=== PATIENT | female | born 1985 | race Caucasian/White ===

== ENCOUNTER 2024-08-24 00:58 | Emergency (ER) | payer OTHER ==
[2024-08-24 01:02] VITALS: TEMP 98.2
[2024-08-24] MEDS: pantoprazole 40 MG vial IV SCH (01:09)
[2024-08-24] MEDS: mag hydrox/Alum hydrox/simeth 30ml oral suspension PO ONE (01:10)
[2024-08-24] MEDS: HYDROmorphone 1 mg/ml syringe IV ONE (01:10)
[2024-08-24] MEDS: LIDOcaine 2% Viscous 15ml cup MM PRN (01:21)
[2024-08-24 01:24] LABS: BASOPHILS # (AUTO) 0.1 X10'3 (0-0.2); BASOPHILS % (AUTO) 0.7 % (0-1); EOSINOPHILS # (AUTO) 0.3 X10'3 (0-0.9); HEMATOCRIT 30.3 % (35.0-45.0); HEMOGLOBIN 10.3 g/dl (12.0-16.0); LYMPHOCYTES # (AUTO) 4.3 X10'3 (1.1-4.8); LYMPHOCYTES % (AUTO) 43.7 % (21-51); MEAN CORPUSCULAR HEMOGLOBIN 28.7 PG (27.0-31.0); MEAN CORPUSCULAR HGB CONC 33.9 g/dL (33.0-36.5); MEAN CORPUSCULAR VOLUME 84.5 FL (78-98); MEAN PLATELET VOLUME 8.2 FL (7.4-10.4); MONOCYTES # (AUTO) 0.6 X10'3 (0-0.9); MONOCYTES % (AUTO) 5.8 % (2-12); NEUTROPHILS # (AUTO) 4.6 X10'3 (1.8-7.7); NEUTROPHILS % (AUTO) 46.8 % (42-75); PLATELET COUNT 271 X10'3 (140-440); RED BLOOD COUNT 3.59 X10'6 (4.20-5.60); RED CELL DISTRIBUTION WIDTH 13.8 % (11.5-14.5); WHITE BLOOD COUNT 9.8 X10'3 (4.5-11.0)
[2024-08-24 01:34] LABS: ALANINE AMINOTRANSFERASE 31 U/L (12-78); ALBUMIN 3.4 G/DL (3.4-5.0); ALBUMIN/GLOBULIN RATIO 1.1 (1.1-1.5); ALKALINE PHOSPHATASE 52 IU/L (46-116); ANION GAP 8 (8-16); ASPARTATE AMINO TRANSFERASE 31 U/L (10-37); BILIRUBIN,TOTAL 0.2 MG/DL (0.1-1.0); BLOOD UREA NITROGEN 15 MG/DL (7-18); BUN/CREATININE RATIO 20.3 (10.0-20.0); CALCIUM 8.2 MG/DL (8.5-10.1); CHLORIDE 107 MMOL/L (99-107); CREATININE 0.74 MG/DL (0.40-0.90); GLUCOSE 88 MG/DL (70-104); SODIUM 140 MMOL/L (135-145); TOTAL PROTEIN 6.4 G/DL (6.4-8.2); eGFR 87 ML/MIN
[2024-08-24 01:37] LABS: LIPASE 45 U/L (16-77)
[2024-08-24] MEDS: ondansetron/PF 4mg/2ml inj IV ONE (01:47)
--- NOTE | 2024-08-24 02:42 | Physician Documentation ---
History of Present Illness Chief Complaint: Abdominal Pain Stated Complaint: SEE CHIEF Time Seen by MD: 01:03 Mode of Arrival: Ambulatory HPI 39 year old female with epigastric burning pain radiating to L chest. Severe, +nausea, no vomiting or diarrhea. Occurred suddenly while at work tonight. Has history of similar episodes, worked up in past in another ER without any definitive diagnosis. Has been bothering her for 4-5 months. She has a follow up appointment with an upper endoscopy scheduled in about 3 weeks. Medication Reconciliation Allergies: Coded Allergies: Penicillins (Verified Allergy, Unknown, 08/24/24) Review of Systems All Other Systems at this time: Reviewed and Negative Physical Exam Vital Signs: RN Vital Signs have been reviewed: Yes, Temperature: 98.2, Heart Rate: 72, Respiratory Rate: 16, BP: 106/65, Pulse Oximetry: 99 Oxygen Flow Rate: 0 Physical Exam HEENT: PERRL, moist oral mucosa, EOMI Pulmonary: No respiratory distress Cardiac: RRR, no murmur, rub or gallop GI: nondistended, soft, nontender, no guarding, no rebound MSK: no deformity Skin: w/d/i, no rash Neuro: alert, nonfocal Psych: normal affect Progress Results/Orders Results/Orders Orders - KAYLAN CONDE MD Pantoprazole 40mg Iv (Protonix 40mg Iv) (08/24/24 01:05) Lidocaine 2% Viscous (Xylocaine 2% Visco (08/24/24 01:05) Urinalysis, Cult If Indicated (08/24/24 01:03) Hcg, Ur Ql (08/24/24 01:03) Chest,Single View (08/24/24 01:05) Completed Orders - KAYLAN CONDE MD Hydromorphone 1 Mg/Ml/Pf (Dilaudid Inj.) (08/24/24 01:05) Mag & Alum Hydrox/Simeth Susp (Maalox Or (08/24/24 01:05) Cbc/Diff (08/24/24 01:03) CMP (08/24/24 01:03) Lipase (08/24/24 01:03) Chest,Single View (08/24/24 01:05) Troponin (Single) (08/24/24 01:05) Ondansetron Inj. (Zofran 4mg/2ml Vial) (08/24/24 01:20) Medications Received in ER Medications (Trade) Dose Ordered Sig/Gianni Route PRN Reason Start Time Stop Time Status Last Admin Dose Admin (Protonix 40mg IV) 80 mg ONCE IV 08/24/24 01:05 08/24/24 01:09 80 MG (Dilaudid inj.) 1 mg ONCE ONCE IV 08/24/24 01:05 08/24/24 01:06 DC 08/24/24 01:10 1 MG (Xylocaine 2% Viscous 15mL cup) 30 ml ONCE PRN MM sore throat 08/24/24 01:05 08/24/24 01:21 30 ML (Maalox oral suspension) 30 ml ONCE ONCE PO 08/24/24 01:05 08/24/24 01:06 DC 08/24/24 01:10 30 ML (Zofran 4mg/2ml vial) 4 mg ONCE ONCE IV 08/24/24 01:20 08/24/24 01:39 DC 08/24/24 01:47 4 MG Vital Signs 08/24/24 08/24/24 08/24/24 08/24/24 01:02 01:10 01:20 02:07 Temp 98.2 Pulse 72 72 Resp 20 20 20 16 B/P (MAP) 112/68 106/65 (79) Pulse Ox 100 99 O2 Flow Rate 0 0 Laboratory Tests Test 08/24/24 01:12 White Blood Count 9.8 Red Blood Count 3.59 L Hemoglobin 10.3 L Hematocrit 30.3 L Mean Corpuscular Volume 84.5 Mean Corpuscular Hemoglobin 28.7 Mean Corpuscular Hemoglobin Concent 33.9 Red Cell Distribution Width 13.8 Platelet Count 271 Mean Platelet Volume 8.2 Neutrophils (%) (Auto) 46.8 Lymphocytes (%) (Auto) 43.7 Monocytes (%) (Auto) 5.8 Eosinophils (%) (Auto) 3.0 Basophils (%) (Auto) 0.7 Neutrophils # (Auto) 4.6 Lymphocytes # (Auto) 4.3 Monocytes # (Auto) 0.6 Eosinophils # (Auto) 0.3 Basophils # (Auto) 0.1 CBC Comment Sodium Level 140 Potassium Level 3.0 *L Chloride Level 107 Carbon Dioxide Level 25.0 Anion Gap 8 Blood Urea Nitrogen 15 Creatinine 0.74 Estimated GFR/1.73 m2 87 BUN/Creatinine Ratio 20.3 H Glucose Level 88 Calcium Level 8.2 L Total Bilirubin 0.2 Aspartate Amino Transf (AST/SGOT) 31 Alanine Aminotransferase (ALT/SGPT) 31 Alkaline Phosphatase 52 Troponin I High Sensitivity 7 Total Protein 6.4 Albumin 3.4 Globulin 3.0 Albumin/Globulin Ratio 1.1 Lipase 45 Chemistry Comments Medical Decision Making Findings 39 year old female with epigastric abdominal pain. Meds provided, workup unremarkable. Bedside US demonstrated no significant findings other than gallstones but no PCCF nor gallbladder wall thickening. Improved on reevaluation. Discharged with return precautions. Differential Dx:Considerations: Include: Appendicitis, Constipation, Esophageal rupture, Esophagitis, Hernia, Ischemic bowel, Ovarian cyst/torsion, Pancreatitis, Urinary obstruction, Urinary tract infection Departure Disposition: HOME / SELF CARE / HOMELESS Impression: Primary Impression: Dyspepsia Condition: Stable Discharge Instructions: Abdominal Pain (Nonspecific) Referrals: NO PRIMARY CARE PROVIDER (PCP) Education Educated: Patient Educated regarding: diagnosis, treatment, prognosis, need for follow up Signature Scribe Signature: . Attestation: . KAYLAN CONDE MD August 24, 2024 02:42
--- NOTE | 2024-08-24 02:54 | RADIOLOGY REPORT ---
Clinical History abdominal pain Comparison None Without Contrast KAILYN FONTANA, [id number] Chest x-ray Clinical history: 39 year-old Abdominal pain Findings: Lung alvarado: No infiltrate or effusion Heart: Normal Musculoskeletal: Normal Impression: Normal chest This report was electronically signed by Caden Bhatti MD on 08/24/2024 2:51:08 AM.
[2024-08-24 03:05] VITALS: BP 106/54; PULSE 62; RESP 16; O2SAT 98
[2024-08-24] MEDS ORDERED: ketamine 10mg/ml 20ml inj vial IV ONE (03:05)
== END 2024-08-24 03:08 | disposition home or self-care (01) ==
LOC: ER 00:59
DX: R10.13 Epigastric pain (principal); Z88.0 Allergy status to penicillin
CPT/HCPCS: 36415; 71045; 80053; 83690; 84484; 85025; 96374; 96375; 99284; J1171; J2405; J2470

== ENCOUNTER 2024-10-19 00:15 | Inpatient (IN) | payer OTHER ==
[2024-10-19] VITALS (8 sets, daily range): BP systolic 89–120; BP diastolic 42–71; PULSE 46–67; RESP 16–18; TEMP 95.7–99.1; O2SAT 97–100
[~2024-10-19] VITALS: Ht 162.6 cm; Wt 86.4 kg
[2024-10-19] MEDS: normal saline 1000ML IV soln IVB ONE (00:30)
[2024-10-19] MEDS: ondansetron/PF 4mg/2ml inj IV STA (00:36)
[2024-10-19] MEDS ORDERED: iohexol 300mg/ml 100ml inj. ONE ×2 (00:39→09:52)
[2024-10-19 00:55] LABS: MEAN PLATELET VOLUME 8.3 FL (7.4-10.4); RED CELL DISTRIBUTION WIDTH 14.1 % (11.5-14.5)
[2024-10-19 01:13] LABS: CREATININE 0.77 MG/DL (0.40-0.90); TOTAL CARBON DIOXIDE 23.4 MMOL/L (24-32); eCRCL 85 ML/MIN; eGFR 83 ML/MIN
--- NOTE | 2024-10-19 01:30 | Physician Documentation ---
History of Present Illness Chief Complaint: Abdominal Pain Stated Complaint: ABD PAIN Time Seen by MD: 00:16 Mode of Arrival: POV, Ambulatory HPI 39-year-old female, history of gallstones, presenting with upper abdominal pain She tells me that she has had intermittent pain over the past several months or longer. The pain is generally in the upper abdomen, worse in the right upper abdomen, and does radiate through to the back. She has had an extensive workup in the past including an ultrasound that showed gallstones, and an upper and lower endoscopy that was unremarkable. She did have elevated liver enzymes 1 time, but recently they have been normal. She is scheduled to see a surgeon in about a month. Today she comes in because of significantly worsening pain. She had an episode this morning, that was severe but then resolved. She was actually at work this evening, when the pain returned. She has been taking opiate pain medications at home without any relief. She reports associated nausea. No fevers, no vomiting, no diarrhea. Medication Reconciliation Allergies: Coded Allergies: Penicillins (Verified Allergy, Unknown, 10/19/24) Review of Systems Constitutional: Denies: fever Gastrointestinal: Reports: abdominal pain, nausea; Denies: vomiting Physical Exam Vital Signs: Temperature: 98.2, Source: Oral, Heart Rate: 20, Respiratory Rate: 20, BP: 134/80, Pulse Oximetry: 99, Weight: 86.360 Physical Exam General: This is a pleasant young woman, partner at bedside HEENT: Atraumatic, oropharynx appears dry Heart: Mild tachycardic, appears regular Lungs: normal work of breathing, normal oxygen saturation on room air Abdomen: Soft, nondistended, focal tenderness to palpation in the epigastric region and right upper quadrant, otherwise nontender, no rebound or guarding Neuro: Alert and oriented Psychiatric: Calm and cooperative with exam Progress Results/Orders Results/Orders Orders - MADY DUKES MD Urinalysis, Cult If Indicated (10/19/24 00:21) Straight Cath For Urine Sample (10/19/24 00:21) * Miscellaneous Nursing Orders (10/19/24 ) Ultrasound Of Abdomen (10/19/24 01:13) Completed Orders - MADY DUKES MD Cbc/Diff (10/19/24 00:21) BMP (10/19/24 00:21) Lipase (10/19/24 00:21) CMP (10/19/24 00:21) Normal Saline 1000ml (0.9% Sodium Chlori (10/19/24 00:25) Hydromorphone 1 Mg/Ml/Pf (Dilaudid Inj.) (10/19/24 00:22) Ondansetron Inj. (Zofran 4mg/2ml Vial) (10/19/24 00:30) Iohexol 300mg/Ml 100ml Inj. (Omnipaque-3 (10/19/24 00:39) Medications Received in ER Medications (Trade) Dose Ordered Sig/Gianni Route PRN Reason Start Time Stop Time Status Last Admin Dose Admin (0.9% sodium chloride (NS) 1000ml IV soln) 1,000 ml ONCE ONCE IVB 10/19/24 00:25 10/19/24 00:26 DC 10/19/24 00:30 1,000 ML (Dilaudid inj.) 1 mg ONCE STAT IV 10/19/24 00:22 10/19/24 00:24 DC 10/19/24 00:27 1 MG (Zofran 4mg/2ml vial) 4 mg ONCE STAT IV 10/19/24 00:30 10/19/24 00:32 DC 10/19/24 00:36 4 MG Vital Signs 10/19/24 10/19/24 10/19/24 00:17 00:23 00:27 Temp 98.2 Pulse 20 Resp 18 20 20 B/P (MAP) 134/80 Pulse Ox 99 Laboratory Tests Test 10/19/24 00:48 White Blood Count 11.0 Red Blood Count 4.18 L Hemoglobin 11.7 L Hematocrit 35.3 Mean Corpuscular Volume 84.4 Mean Corpuscular Hemoglobin 28.0 Mean Corpuscular Hemoglobin Concent 33.1 Red Cell Distribution Width 14.1 Platelet Count 305 Mean Platelet Volume 8.3 Neutrophils (%) (Auto) 74.3 Lymphocytes (%) (Auto) 18.9 L Monocytes (%) (Auto) 4.2 Eosinophils (%) (Auto) 2.0 Basophils (%) (Auto) 0.6 Neutrophils # (Auto) 8.2 H Lymphocytes # (Auto) 2.1 Monocytes # (Auto) 0.5 Eosinophils # (Auto) 0.2 Basophils # (Auto) 0.1 CBC Comment Sodium Level 137 Potassium Level 3.8 Chloride Level 105 Carbon Dioxide Level 23.4 L Anion Gap 9 Blood Urea Nitrogen 12 Creatinine 0.77 Estimated GFR/1.73 m2 83 BUN/Creatinine Ratio 15.6 Glucose Level 123 H Calcium Level 8.1 L Total Bilirubin 2.3 H Aspartate Amino Transf (AST/SGOT) 283 H Alanine Aminotransferase (ALT/SGPT) 340 H Alkaline Phosphatase 100 Total Protein 6.5 Albumin 3.4 Globulin 3.1 Albumin/Globulin Ratio 1.1 Lipase 28 Chemistry Comments EKG/XRAY/CT/US/VASC/MRI Ultrasound : Ultrasound of: abdomen Impression I reviewed the ultrasound, which shows gallstones, but no gallbladder wall thickening or pericholecystic fluid Consults/PCP Consults/PCP : Additional Comment Consult: I spoke to the internal medicine service, for admission in the hospital Medical Decision Making Additional Comments Differential includes gallstones, cholecystitis, pancreatitis, common bile duct stone, gastritis, colitis, dehydration, electrolyte derangement Assessment The patient presents with worsening episodes of right upper quadrant pain. Per her history and exam this seems likely consistent with gallbladder disease. She is mildly tender, but her pain had significantly improved by time of my evaluation. Her workup shows gallstones without evidence of cholecystitis. She does have slightly elevated LFTs which is also consistent with gallbladder disease. She recently had upper endoscopy that did not show gastritis or peptic ulcer disease. Given her severe symptoms, and the fact that she is having worsening symptoms and missing work, it seems reasonable for admission for further treatment and surgical consult for possible cholecystectomy or other intervention. She will be admitted to the medicine service overnight. Departure Impression: Primary Impression: Cholelithiasis without obstruction Additional Impressions: Elevated LFTs Right upper quadrant abdominal pain Referrals: NO PRIMARY CARE PROVIDER (PCP) Signature Scribe Signature: na Attestation: MADY Hill MD Oct 19, 2024 01:30
--- NOTE | 2024-10-19 02:52 | RADIOLOGY REPORT ---
INDICATION: RUQ PAIN PMHX OF GALLSTONES TECHNIQUE: Multiple real-time sonographic images were obtained of the right upper quadrant. COMPARISON: None FINDINGS: The liver demonstrates diffusely increased echotexture without focal mass lesions. The live r measures 16.9 cm. Normal hepatopetal portal flow identified. No evidence of pleural effusion or ab dominal ascites. There is no intrahepatic or extrahepatic ductal dilatation. The common duct measures 0.4 cm. Mobile stones and sludge identified within the gallbladder. The gallbladder wall measures 0.2 cm and is within normal limits. Negative sonographic tadeo's sign. The right kidney measures 11.6 cm. The right kidney is normal in contour, size, and shape. The echoge nicity is normal. There is no hydronephrosis. The pancreas is not well visualized due to overlying bowel gas. IMPRESSION: 1. Uncomplicated cholelithiasis and sludge. 2. Hepatic steatosis.
[2024-10-19] MEDS ORDERED: HYDROcodone/acetaminophen 5mg/325mg tablet PO PRN (03:45)
[2024-10-19] MEDS ORDERED: magnesium sulf-water 4G/100mL 100 ML IV PRN (03:45)
[2024-10-19] MEDS ORDERED: potassium Cl 20 mEq SR tablet PO PRN ×2 (03:45)
[2024-10-19] MEDS ORDERED: mag hydrox/Alum hydrox/simeth 30ml oral suspension PO PRN (03:45)
[2024-10-19] MEDS ORDERED: magnesium sulf-water 2g/50mL 50 ML IV PRN (03:45)
[2024-10-19] MEDS ORDERED: potassium Cl 40MEQ/1/2NS 520ml 520 ML IV PRN (03:45)
[2024-10-19] MEDS ORDERED: magnesium Cl slow-release 64mg tablet PO PRN (03:45)
[2024-10-19] MEDS: normal saline 1000ml 1,000 ML IV SCH (03:54)
--- NOTE | 2024-10-19 03:55 | HISTORY AND PHYSICAL-Residence ---
History & Physical Providers to CC Resident Creating Document: STEFANIE NEWMAN RES ~ History of Present Illness Reason for Admit\\Complaint: SYMPTOMATIC CHOLELITHIASIS History of Present Illness 39-year-old female with history of gallstones presented to the ED with chief complaints of worsening abdominal pain. Located in the epigastric and right upper quadrant, radiating to right upper back. Associated with nausea. Denies vomiting, significant chest pains, diaphoresis, fevers/chills, nasal congestion, expectoration, palpitations, or weight loss/weight gain. No aggravating or relieving factors. She has been having on and off abdominal pain for the past several months. She had extensive workup done outpatient for the pain, was found to have gallstones, had an EGD and colonoscopy done three weeks ago, was found to have "inflammation" and was asked to take Pepcid. Was also given Bolt by her PCP at [place]. Is scheduled to see a surgeon in about a month. Smokes cigarettes occasionally, does not drink alcohol, no recreational drugs. Discussed advanced care directives and she wishes to be a full code. Allergies: Coded Allergies: Penicillins (Verified Allergy, Unknown, 10/19/24) Past Medical History Past Medical History None Past Surgical History Surgical History Comment None ROS ROS Reviewed in full. All negative except for pertinent positive HPI. Constitutional: Denies: fever Gastrointestinal: Reports: abdominal pain, nausea; Denies: vomiting Exam Vitals: Vital Signs Date Time Temp Pulse Resp B/P (MAP) Pulse Ox O2 Delivery O2 Flow Rate FiO2 10/19/24 03:13 80 16 108/61 (77) 98 10/19/24 00:17 98.2 General: General: Awake and Alert, no acute distress. HEENT: Conjunctiva pink, Sclera clear, Mucus Membranes moist. Neck: Supple without masses and tenderness. Resp: Unlabored. Equal breath sounds bilaterally. Heart: Regular rhythm, normal S1 and S2, no rub, murmur or gallop. Abdomen: Abdomen soft, nontender, normal bowel sounds x4. No guarding or rigidity. Iglesias's sign negative. Extremities: Normal ROM, no swelling, nontender. No cyanosis,clubbing or edema. COMBAT CONTROL MANAGER: No gross motor or sensory abnormalities. Skin: Warm and Dry. Diagnostic Data Last Recorded Lab Results: 10/19/24 0048 10/19/24 0048 Advance Care Planning Advanced Care plannin - 30 Minutes Additional Plan 39-year-old female with history of gallstones presented to the ED with chief complaints of worsening abdominal pain. Located in the epigastric and right upper quadrant, radiating to right upper back. Symptomatic cholelithiasis Transaminitis secondary to above Vitals within normal limits WBCs within normal limits, follow up with procalcitonin and lactic acid No signs or symptoms of infection, hence have not started any empiric antibiotics at this time Continue IV fluids at 100 mL/hour, pain medications p.r.n. Ultrasound abdomen: No signs of cholecystitis, uncomplicated cholelithiasis and sludge noted. NPO Consult surgeon in a.m. Code Status: Full code DVT prophylaxis: SCDs, patient is ambulatory Analgesia/sedation: Morphine/Bolt Line/tube: PIV GI prophylaxis: Protonix Nutrition: NPO Prognosis: Guarded Disposition: Continue medical management. Stefanie Newman MD. IM Resident PGY-3 Plan reviewed with bedside team. Patient seen through remote audiovisual assessment through HIPAA compliant setup. All labs, flowsheets, and images reviewed Cumulative nonprocedural care time spent in directed patient care = 30 min Date of Service: Oct 19, 2024 Billing Provider: LIBERTAD POSADAS MD, ELIZABETH, PK Oct 19, 2024 03:55 LIBERTAD POSADAS MD Oct 19, 2024 05:22
[2024-10-19] MEDS: K and/or MAG REPLACEMENT MC SCH (08:00)
[2024-10-19 10:12] LABS: LEUKOCYTE ESTERASE ,URINE NEGATIVE (Neg); NITRITES, URINE NEGATIVE (Neg); OCCULT BLOOD,URINE NEGATIVE (Neg); URINE HCG NEGATIVE (NEG)
[2024-10-19 10:15] LABS: UA COLLECTION TYPE NON-SPECIFIED
--- NOTE | 2024-10-19 10:57 | RADIOLOGY REPORT ---
Indication: Abdominal pain, elevated LFT cholelithiasis Technique: CT axial images of the abdomen and pelvis are obtained with intravenous contrast. Coronal and sagittal reformats were obtained. Radiation Dose Information: CTDI volume is 28 mGy. Dose-length product is 1471 mGy*cm Comparison: Abdominal ultrasound from today FINDINGS: Lung bases demonstrate atelectasis Adrenal glands, spleen, pancreas unremarkable. Cholelithiasis and pericholecystic edema, gallbladder wall hyperemia. Hepatic steatosis. The kidneys demonstrate no hydronephrosis. Stomach is partially distended. Small bowel loops are normal in caliber. Colonic diverticula. Moderate volume stool in the colon. Abdominal aorta normal in caliber. Bladder is partially distended. Uterine leiomyomas. Right ovarian corpus luteum cyst measuring 2.0 cm. Trace free pelvic fluid. No inguinal lymphadenopathy. Mild bilateral sacroiliac degenerative joint disease. Tfrr-tc-bohmeahh thoracolumbar degenerative disc disease. IMPRESSION: Cholelithiasis, gallbladder wall hyperemia and pericholecystic edema, concerning for cholecystitis. R ecommend HIDA scan. Hepatic steatosis. Right ovarian corpus luteal cyst. Small amount of free pelvic fluid. Uterine leiomyomas. Other findings as described.
[2024-10-19] MEDS: ondansetron/PF 4mg/2ml inj IV PRN (12:10)
--- NOTE | 2024-10-19 15:37 | RADIOLOGY REPORT ---
Procedure: NM NM HIDA SCAN Exam Date: 10/19/2024 10:25 AM Clinical History: Abnormal liver enzymes, cholelithiasis Comparison Study: CT dated 10/19/2024 Nuclear Medicine Hepatobiliary Scan. Technique: Following the intravenous administration of 5.4 mCi of technetium 99m labeled Choletec multiple plana r abdominal planar images were obtained in anterior projection in 5 minute intervals for45 minutes . Delayed images obtained at 3 hours and 40 minutes. Findings: The liver appears grossly normal in size. There is no abnormal persistence of the cardiac or blood po ol activity. There is visualization of the gallbladder and no excretion of activity into the small b owel. Impression: There is visualization of the gallbladder on delayed images suggesting patency of the cystic duct. There is nonvisualization of small bowel suggesting common bile duct obstruction. Clinical correlati on advised. ERCP and/or MRCP could be considered to further evaluate if clinically indicated.
--- NOTE | 2024-10-19 15:49 | PROGRESS NOTE ---
Progress Note ID Providers to CC ~ Progress Note Progress Note: pt seen-needs mrcp RINA GALVAN MD Oct 19, 2024 15:49
--- NOTE | 2024-10-19 17:58 | RADIOLOGY REPORT ---
[id number] MR MRCP Attending Name: DENNIS THOMAS COMPARISON: Nuclear medicine HIDA scan 10/19/2024; CT abdomen/ pelvis 10/19/2024; right upper quadran t ultrasound 10/19/2024 INDICATION: cd obstruction TECHNIQUE: MRCP was performed without the use of intravenous contrast using a MRI imaging system. Thr ee-dimensional MRCP was performed using maximum intensity projection reconstruction on an independent workstation. FINDINGS: Moderate motion artifact. Visualized lower thorax: Limited evaluation. No gross abnormalities. Liver: No evidence of focal liver lesions. Gallbladder: Cholelithiasis with a small amount of pericholecystic fluid. No significant gallbladder distention. Biliary system: No evidence of intrahepatic or extrahepatic biliary ductal dilatation. The common bi le duct measures up to 4 mm in diameter. No evidence of ductal filling defects within the limitation of moderate motion artifact. Spleen: Normal spleen size. Pancreas: Normal in morphology and signal intensity. Adrenal glands: Limited evaluation. No obvious lesions. Kidneys: The kidneys are symmetric in size and appearance. No hydronephrosis. GI tract: There is mild prominence/ bulging at the duodenal papilla that measures 9 x 7 mm (series 6, image 25). Musculoskeletal: The visualized bone marrow signal intensity is within normal limits. IMPRESSION: There is moderate motion artifact. Within this limitation: No evidence of choledocholithiasis or biliary ductal dilatation. Cholelithiasis and mild pericholecystic fluid. Mild prominence at the duodenal papilla is likely a normal variant. An underlying lesion is considere d much less likely although may consider direct visualization if symptoms persist.
--- NOTE | 2024-10-19 18:29 | PROGRESS NOTE ---
Daily Progress Note Providers to CC ~ Antibiotic Timeout Antibiotic Ordered?: Yes Subjective Patient is seen in presence of her ER friend in surgical unit today and in presence of nursing staff Wolf. As per patient pain is 1/10 and mainly over epigastric area and right upper quadrant. She has this pain since May 2024 in she gets it off and on but now it is progressively getting more worse and staying for longer period of time. As per patient she does not drink alcohol on regular basis , not taking any prescription medications or [id number] meds regularly. No fever noticed, blood pressure borderline. I checked manual blood pressure it is 130/82. Last bowel movement was normal patient denied any vomiting or any other symptoms. Surgical consult requested from Dr. Martin and he evaluated the patient recommended MRCP. MRCP results reviewed which does not show No evidence of choledocholithiasis or biliary ductal dilatation. Cholelithiasis and mild pericholecystic fluid present . Patient is started on clear liquid diet further management as recommended by Dr. Goodman. Objective Vital Signs Date Time Temp Pulse Resp B/P (MAP) Pulse Ox O2 Delivery O2 Flow Rate FiO2 10/19/24 10:00 96.6 67 16 90/57 (68) 98 Room Air Result Diagram: 10/19/24 0048 10/19/24 0520 General-patient not in any acute distress, alert awake oriented, age-appropriate HEENT-atraumatic normocephalic, neck supple without elevated JVD, no thyromegaly or carotid bruit. No lymphadenopathy bilaterally. Eyes-no icterus or pallor seen in eyes Chest-clear to auscultation bilaterally, breathing nonlabored no tachypnea, no wheezing, no crepitation, no crackles. Heart-S1-S2 normal, regular heart rate no murmur Abdomen bowel sounds positive on auscultation, soft nondistended , signs of discomfort on palpation present over right upper quadrant. no guarding, no rigidity Skin no active skin rash, tattoos present over extremities Neurology-grossly intact, nonfocal alert awake oriented Extremity- no pedal edema able to move all 4 extremities Psychiatry - patient is not confused or agitated cooperated during physical examination Problem\Assessment\Plan 39-year-old female with history of gallstones presented to the ED with chief complaints of worsening abdominal pain. Located in the epigastric and right upper quadrant, radiating to right upper back. Symptomatic cholelithiasis Transaminitis secondary to above Vitals within normal limits , manual blood pressure 130/82 WBCs within higher limit of normal limits, reviewed procalcitonin and lactic acid Empirically levothyroxine started today and sed rate ordered for a.m. Continue IV fluids at 100 mL/hour, pain medications p.r.n. Ultrasound abdomen: No signs of cholecystitis, uncomplicated cholelithiasis and sludge noted. CT abdomen and pelvis showed cholelithiasis, gallbladder wall hyperemia and pericolic cystic edema concerning for cholecystitis recommended HIDA scan which was ordered. Surgical consult requested from Dr. Martin and he evaluated the patient recommended MRCP. MRCP results reviewed which does not show No evidence of choledocholithiasis or biliary ductal dilatation. Cholelithiasis and mild pericholecystic fluid present . Patient is started on clear liquid diet further management as recommended by Dr. Goodman. Code Status: Full code DVT prophylaxis: SCDs, patient is ambulatory Analgesia/sedation: Morphine/[place] Line/tube: PIV GI prophylaxis: Protonix Patient's current condition is guarded we will continue to follow patient in a.m. Date of Service: Oct 19, 2024 Billing Provider: DENNIS THOMAS MD Common Visit Codes: [id number] INP/OBS CARE(MOD) DENNIS THOMAS MD Oct 19, 2024 18:29
[2024-10-19] MEDS: levoFLOXACIN-Levaquin 500mg/D5 100 ML IV ONE (19:20)
[2024-10-19] MEDS: HYDROcodone/acetaminophen 10/325mg tab PO PRN (20:29)
[2024-10-20] VITALS (24 sets, daily range): BP systolic 94–115; BP diastolic 40–72; PULSE 45–80; RESP 11–20; TEMP 97.8–98.1; O2SAT 92–100
[2024-10-20 06:36] LABS: MEAN PLATELET VOLUME 9.9 FL (7.4-10.4); RED CELL DISTRIBUTION WIDTH 14.6 % (11.5-14.5)
[2024-10-20 06:41] LABS: INR 1.0 INR
--- NOTE | 2024-10-20 07:05 | ELECTROCARDIOGRAPH REPORT ---
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 OLVIN Asencio Measurements Intervals [place] Rate: 48 P: 30 AK: 171 QRS: 52 QRSD: 96 T: 53 QT: 444 QTc: 397 Interpretive Statements Sinus bradycardia Electronically Signed On 10-20-2024 11:46:[address] OLVIN Asencio Please click the below link to view image of tracing.
[2024-10-20] MEDS ORDERED: BUPIVAcaine 2.5mg/ml inj 50ml vial (contains preservative) ONE (07:07)
[2024-10-20 07:11] LABS: CREATININE 0.70 MG/DL (0.40-0.90); PHOSPHORUS 3.4 MG/DL (2.3-4.5); TOTAL CARBON DIOXIDE 21.8 MMOL/L (24-32); eCRCL 93 ML/MIN; eGFR > 90 ML/MIN
[2024-10-20] MEDS ORDERED: NO HOME MEDS (07:40)
[2024-10-20] MEDS: ringers solution, lacted 1,000 ML IV SCH (08:05)
[2024-10-20] MEDS ORDERED: ondansetron/PF 4mg/2ml inj IV PRN (08:05)
[2024-10-20] MEDS ORDERED: hydrALAZINE 20mg/ml inj. IV PRN (08:05)
[2024-10-20] MEDS ORDERED: fentaNYL/PF 50MCG/1 ML 2ML syringe IV PRN (08:05)
[2024-10-20] MEDS ORDERED: labetalol 20mg/4ml (5mg/ml) syringe IV PRN (08:05)
--- NOTE | 2024-10-20 08:09 | PROGRESS NOTE ---
Progress Note ID Providers to CC ~ Progress Note Progress Note: mrcp neg-pt needs [facility] heredia-discussed procedure including risks/benefits/alternatives RINA GALVAN MD Oct 20, 2024 08:09
[2024-10-20] MEDS: HYDROmorphone inj. 0.5 MG/0.5 ML DISP.SYRIN IV PRN (09:34)
[2024-10-20] MEDS ORDERED: LIDOcaine 2% (20mg/ml) 5ml vial ONE (11:49)
[2024-10-20] MEDS ORDERED: fentaNYL/PF 50MCG/1 ML 2ML syringe ONE (11:49)
[2024-10-20] MEDS ORDERED: rocuronium 10mg/ml inj IV ONE (11:49)
[2024-10-20] MEDS ORDERED: propofol inj 20 ML IV ONE (11:49)
[2024-10-20] MEDS ORDERED: dexamethasone sod phosphate 4mg/ml inj. ONE (11:49)
[2024-10-20] MEDS ORDERED: midazolam 1 mg/ML 2ml injection ONE (11:49)
[2024-10-20] MEDS ORDERED: acetaminophen 1,000mg/100ml IV 100 ML IV ONE (11:49)
[2024-10-20] MEDS ORDERED: ondansetron/PF 4mg/2ml inj ONE (11:50)
[2024-10-20] MEDS ORDERED: glycopyrrolate 0.2mg/ml inj ONE (11:50)
[2024-10-20] MEDS ORDERED: ketorolac trometh 30MG/ML vial 30 MG/ML VIAL ONE (12:55)
--- NOTE | 2024-10-20 13:01 | OPERATIVE REPORT ---
Operative Report Providers to CC CC: RINA GALVAN MD ~ Date of Procedure: Oct 20, 2024 Pre-Operative Diagnosis: cholellithiasis/cholecystitis Post-Operative Diagnosis SAME as PRE-Op Procedure Performed hayder heredia Surgeon: bonilla Lifeguard none Anesthesiologist: Lupillo Moralez Type of Anesthesia: General Findings: cholecystitis Estimated Blood Loss: min Specimen Removed: gb RINA GALVAN MD Oct 20, 2024 13:01
[2024-10-20] MEDS ORDERED: PCA WASTE DOCUMENTATION 1 MG ML MC SCH (13:05)
[2024-10-20] MEDS ORDERED: ketorolac trometh 30MG/ML vial 30 MG/ML VIAL IV PRN (13:10)
[2024-10-20] MEDS: morphine 4 MG/ML inj SYRINge IV PRN (13:13)
[2024-10-20] MEDS: fentaNYL/PF 50MCG/1 ML 2ML syringe IV PRN (13:36)
--- NOTE | 2024-10-20 13:53 | OPERATIVE REPORT ---
DATE OF SURGERY: 10/20/2024 DICTATING PHYSICIAN: Alejandro Hooks MD PREOPERATIVE DIAGNOSES: Cholelithiasis and cholecystitis. POSTOPERATIVE DIAGNOSES: Cholelithiasis and cholecystitis. PROCEDURE PERFORMED: Robotic cholecystectomy. SURGEON: Alejandro Hooks MD INSURANCE APPLICATION INVESTIGATOR: None. ANESTHESIA: General/Dr. Moralez. DRAINS: None. INDICATIONS FOR OPERATION: A 39-year-old female with recurrent abdominal pain, found to have cholelithiasis and cholecystitis, taken to surgery for robotic cholecystectomy. INTRAOPERATIVE FINDINGS: Distended gallbladder and cholecystitis. DESCRIPTION OF PROCEDURE: The patient was placed supine on the operating table. After induction of general anesthesia and placement of endotracheal tube, the abdomen was prepped and draped. A subumbilical incision was then made and Sridevi port placed using open technique and pneumoperitoneum was begun by insufflation of CO2. Additional ports were then placed, one in the left lower quadrant and two in the right. Robot was brought to the field. Camera port docked. Camera placed, camera targeted. Additional ports were then docked and instruments were placed. Abdomen was explored. Gallbladder fundus was grasped and retracted cephalad. Adhesions were taken down. The cystic duct was identified, isolated, ligated, clipped and divided as was the cystic artery. The gallbladder was mobilized out of the gallbladder fossa. When hemostasis was found to be adequate, robotic instruments were removed. Robot undocked from the field. Gallbladder was placed in Endobag using a laparoscope. Abdomen was then copiously irrigated with large amount of antibiotic-containing solution. Ports were removed. Gallbladder removed using a laparoscope. Pneumoperitoneum was evacuated. Wounds closed in layers. Skin was closed with subcuticular stitches. Dressings applied. The patient was transferred to recovery in stable condition. Alejandro Hooks MD TID: [id number] RECEIPT: [id number] SHIRAZ/SAMIAR
[2024-10-20] MEDS ORDERED: HYDROmorph/NS 0.2 mg/ml PCA 100 ML IV SCH (15:00)
--- NOTE | 2024-10-20 20:10 | PROGRESS NOTE ---
Daily Progress Note Providers to CC ~ Antibiotic Timeout Antibiotic Ordered?: Yes Subjective Patient is seen in her room in presence of her ER friend and nursing staff Wolf today. Patient is status post robotic cholecystectomy done by Dr. Goodman for acute cholecystitis. On clear liquid diet currently. pain Medication ordered for pain control . Objective Vital Signs Date Time Temp Pulse Resp B/P (MAP) Pulse Ox O2 Delivery O2 Flow Rate FiO2 10/20/24 18:33 17 10/20/24 17:58 51 99/61 (74) 97 10/20/24 14:30 Room Air 10/20/24 14:20 0.0 10/20/24 13:06 98.8 Result Diagram: 10/20/24 0552 10/20/24 0556 General-patient not in any acute distress, alert awake oriented, age-appropriate HEENT-atraumatic normocephalic, neck supple without elevated JVD, no thyromegaly or carotid bruit. No lymphadenopathy bilaterally. Eyes-no icterus or pallor seen in eyes Chest-clear to auscultation bilaterally, breathing nonlabored no tachypnea, no wheezing, no crepitation, no crackles. Heart-S1-S2 normal, regular heart rate no murmur Abdomen bowel sounds positive on auscultation, soft nondistended , signs of discomfort on palpation present over surgical site. Signs of surgical wound present over abdomen and bandage noted. no guarding, no rigidity Skin no active skin rash, tattoos present over extremities Neurology-grossly intact, nonfocal alert awake oriented Extremity- no pedal edema able to move all 4 extremities Psychiatry - patient is not confused or agitated cooperated during physical examination Coagulation Studies Laboratory Tests Test 10/20/24 05:52 Prothrombin Time 10.3 SECONDS (9.0-12.0) INR International Normalized Ratio 1.0 INR Coagulation Comments Problem\Assessment\Plan 39-year-old female with history of gallstones presented to the ED with chief complaints of worsening abdominal pain. Located in the epigastric and right upper quadrant, radiating to right upper back. Symptomatic cholelithiasis Transaminitis secondary to above Vitals within normal limits , manual blood pressure 130/82 WBCs within higher limit of normal limits, reviewed procalcitonin and lactic acid Empirically levothyroxine started today and sed rate ordered for a.m. Continue IV fluids at 100 mL/hour, pain medications p.r.n. Ultrasound abdomen: No signs of cholecystitis, uncomplicated cholelithiasis and sludge noted. CT abdomen and pelvis showed cholelithiasis, gallbladder wall hyperemia and pericolic cystic edema concerning for cholecystitis recommended HIDA scan which was ordered. Surgical consult requested from Dr. Martin and he evaluated the patient recommended MRCP. MRCP results reviewed which does not show No evidence of choledocholithiasis or biliary ductal dilatation. Cholelithiasis and mild pericholecystic fluid present . Patient is started on clear liquid diet further management as recommended by Dr. Goodman. Patient is status post robotic cholecystectomy done by Dr. Goodman for acute cholecystitis. On clear liquid diet currently. pain Medication ordered for pain control . Code Status: Full code DVT prophylaxis: SCDs, patient is ambulatory Analgesia/sedation: Morphine/Handley Line/tube: PIV GI prophylaxis: Protonix Patient's current condition is guarded we will continue to follow patient in a.m. further management as recommended by Dr. Hooks . Date of Service: Oct 20, 2024 Billing Provider: DENNIS THOMAS MD Common Visit Codes: [id number] INP/OBS CARE(MOD) DENNIS THOMAS MD Oct 20, 2024 20:10
[2024-10-21 02:00] VITALS: BP 88/48; PULSE 46; RESP 14; TEMP 97.8; O2SAT 97
--- NOTE | 2024-10-21 04:49 | CONSULTATION ---
DATE OF CONSULTATION: 10/19/2024 DICTATING PHYSICIAN: Alejandro Hooks MD REASON FOR CONSULTATION: Abdominal pain. HISTORY OF PRESENT ILLNESS: This is a 39-year-old female with history of cholelithiasis abdominal discomfort. CAT scan revealed evidence of cholecystitis. Surgical evaluation is now requested. On further questioning, the patient has had intermittent bowel discomfort for the past few months. No history of peptic ulcer disease. EGD was notable for inflammatory changes. No history of inflammatory bowel disease. PAST MEDICAL HISTORY: Essentially unremarkable. PAST SURGICAL HISTORY: None. HOME MEDICATIONS: Include Pepcid. ALLERGIES: None. SOCIAL HISTORY: Noncontributory. REVIEW OF SYSTEMS: See H and P. PHYSICAL EXAMINATION: GENERAL: Well-nourished female in no distress. VITAL SIGNS: Unremarkable. HEART: Regular rate and rhythm. LUNGS: Clear to auscultation. ABDOMEN: Mild tenderness. No signs of peritonitis. EXTREMITIES: Unremarkable. NEUROLOGIC: Nonfocal. LABORATORY DATA: WBC is 11, hematocrit 25, platelet count 305. Chemistries notable for total bili is 2.3, AST and ALT is 383 and 340, lipase 28. IMAGING STUDIES: Abdominal ultrasound confirms the presence of cholelithiasis. CT abdomen and pelvis, cholelithiasis and pericholecystic edema. IMPRESSION: Cholelithiasis and cholecystitis. PLAN: * Admit. * Hydrate. * IV antibiotics. * Robotic cholecystectomy. Alejandro Hooks MD TID: [id number] RECEIPT: [id number] SHIRAZ/SAMIRA/GERSON
[2024-10-21 06:00] VITALS: BP 102/58; PULSE 49; RESP 13; TEMP 98.2; O2SAT 99
[2024-10-21 06:09] LABS: MEAN PLATELET VOLUME 11.0 FL (7.4-10.4); RED CELL DISTRIBUTION WIDTH 14.5 % (11.5-14.5)
[2024-10-21 06:27] LABS: CREATININE 0.68 MG/DL (0.40-0.90); PHOSPHORUS 2.4 MG/DL (2.3-4.5); TOTAL CARBON DIOXIDE 22.4 MMOL/L (24-32); eCRCL 96 ML/MIN; eGFR > 90 ML/MIN
[2024-10-21 08:00] VITALS: RESP 16
[2024-10-21 10:00] VITALS: BP 124/71; PULSE 61; RESP 18; TEMP 99; O2SAT 99
[2024-10-21] MEDS: docusate sod 100mg capsule PO SCH (11:00)
[2024-10-21 14:03] LABS: CREATININE 0.79 MG/DL (0.40-0.90); TOTAL CARBON DIOXIDE 24.7 MMOL/L (24-32); eCRCL 83 ML/MIN; eGFR 81 ML/MIN
--- NOTE | 2024-10-21 17:47 | PROGRESS NOTE ---
Daily Progress Note Providers to CC ~ Antibiotic Timeout Antibiotic Ordered?: Yes Subjective The patient is doing very well and was quite eager to be discharged today however her liver function tests doubled from yesterday and thus I do not feel safe to discharge the patient. Patient is complaining of itching and IV Benadryl is ordered. Objective Vital Signs Date Time Temp Pulse Resp B/P (MAP) Pulse Ox O2 Delivery O2 Flow Rate FiO2 10/21/24 17:26 16 10/21/24 10:00 99.0 61 124/71 (88) 99 10/21/24 08:00 Room Air 10/20/24 14:20 0.0 Result Diagram: 10/21/24 0420 10/21/24 1337 Gen. No acute distress alert and oriented 4 Lungs clear to ascultation bilaterally, no wheezes rales or rhonchi appreciated Heart normal sinus rhythm no murmurs rubs or clicks noted Abdomen soft mild generalized tenderness bowel sounds are normoactive Lower extremities no clubbing cyanosis, nor edema appreciated bilaterally Coagulation Studies Laboratory Tests Test 10/20/24 05:52 Prothrombin Time 10.3 SECONDS (9.0-12.0) INR International Normalized Ratio 1.0 INR Coagulation Comments Problem\Assessment\Plan 39-year-old female with history of gallstones presented to the ED with chief complaints of worsening abdominal pain. Located in the epigastric and right upper quadrant, radiating to right upper back. Symptomatic cholelithiasis Transaminitis secondary to above Vitals within normal limits , manual blood pressure 130/82 WBCs within higher limit of normal limits, reviewed procalcitonin and lactic acid Empirically levothyroxine started today and sed rate ordered for a.m. Continue IV fluids at 100 mL/hour, pain medications p.r.n. Ultrasound abdomen: No signs of cholecystitis, uncomplicated cholelithiasis and sludge noted. CT abdomen and pelvis showed cholelithiasis, gallbladder wall hyperemia and pericolic cystic edema concerning for cholecystitis recommended HIDA scan which was ordered. Surgical consult requested from Dr. Martin and he evaluated the patient recommended MRCP. MRCP results reviewed which does not show No evidence of choledocholithiasis or biliary ductal dilatation. Cholelithiasis and mild pericholecystic fluid present . Patient is started on clear liquid diet further management as recommended by Dr. Goodman. Patient is status post robotic cholecystectomy done by Dr. Goodman for acute cholecystitis. On clear liquid diet currently. pain Medication ordered for pain control . 10/21 the patient is LFTs have doubled since yesterday thus the patient will remain hospitalized for an additional evening if liver function tests remains significantly elevated tomorrow I will order a repeat CT scan to evaluate for choledocholithiasis as the patient had stones and sludge seen on abdominal ultrasound. The patient is itchy and I ordered Benadryl IV. Code Status: Full code DVT prophylaxis: SCDs, patient is ambulatory Analgesia/sedation: Morphine/[place] Line/tube: PIV GI prophylaxis: Protonix Date of Service: Oct 21, 2024 Billing Provider: LADY ARIAS DO Common Visit Codes: [id number] INP/OBS CARE(HIGH) LADY ARIAS DO Oct 21, 2024 17:47
[2024-10-21 18:00] VITALS: BP_SYST 106; BP_SYST 118; BP_DIAS 60; BP_DIAS 69; PULSE 55; PULSE 61; RESP 14; RESP 18; TEMP 97.7; TEMP 98.3; O2SAT 95; O2SAT 98
--- NOTE | 2024-10-21 18:47 | PROGRESS NOTE ---
Progress Note ID Providers to CC ~ Progress Note Progress Note: doing well/anticipate dc in am RINA GALVAN MD Oct 21, 2024 18:47
[2024-10-22 05:19] LABS: MEAN PLATELET VOLUME 10.1 FL (7.4-10.4); RED CELL DISTRIBUTION WIDTH 15.1 % (11.5-14.5)
[2024-10-22 05:23] LABS: CREATININE 0.73 MG/DL (0.40-0.90); PHOSPHORUS 3.8 MG/DL (2.3-4.5); TOTAL CARBON DIOXIDE 27.6 MMOL/L (24-32); eCRCL 89 ML/MIN; eGFR 89 ML/MIN
[2024-10-22 06:00] VITALS: BP 104/64; PULSE 71; RESP 15; TEMP 98.1; O2SAT 99
[2024-10-22] MEDS: pantoprazole 40mg Tablet.DR PO SCH (07:31)
[2024-10-22 10:00] VITALS: BP 102/65; PULSE 51; RESP 17; TEMP 98; O2SAT 99
[2024-10-22] MEDS ORDERED: HYDR-3972 PO ×2 (11:22→11:29)
[2024-10-22 11:29] VITALS: RESP 17
--- NOTE | 2024-10-22 22:25 | DISCHARGE SUMMARY ---
Discharge Summary Providers to CC ~ Discharge Summary Admission Diagnosis: cholellithiasis/cholecystitis Hospital Course DATE OF ADMISSION: 10/19/2024 DATE OF DISCHARGE: 10/22/2024 Discharge Diagnosis\\Comment: ACUTE CHOLECYSTITIS, transaminitis Operations\\Procedures: Status post robotic laparoscopic cholecystectomy Consultants: Dr Alejandro Hooks surgeon Complications: None Condition on DC: Stable New Medications: Hydrocodone Bit/Acetaminophen (Hydrocodon-Acetaminophn 10-325 tablet) 10mg- 325mg Tablet 1 EACH PO Q6H PRN for severe pain (7-10), #15 TAB 0 Refills Discontinued Medications: Home Med List (No Home Medications) Each Discharge Summary: The patient was admitted by resident physician AMANDA Oviedo, under the supervision of LIBERTAD Baker MD with the following HPI:"39-year-old female with history of gallstones presented to the ED with chief complaints of worsening abdominal pain. Located in the epigastric and right upper quadrant, radiating to right upper back. Associated with nausea. Denies vomiting, significant chest pains, diaphoresis, fevers/chills, nasal congestion, expectoration, palpitations, or weight loss/weight gain. No aggravating or relieving factors. She has been having on and off abdominal pain for the past several months. She had extensive workup done outpatient for the pain, was found to have gallstones, had an EGD and colonoscopy done three weeks ago, was found to have "inflammation" and was asked to take Pepcid. Was also given Union by her PCP at [facility]. Is scheduled to see a surgeon in about a month. Smokes cigarettes occasionally, does not drink alcohol, no recreational drugs. Discussed advanced care directives and she wishes to be a full code." The patient has a HIDA scan the demonstrate possible cholecystitis which was demonstrated on the abdominal ultrasound MRCP was negative for any choledocholithiasis, the patient does have hepatic steatosis as well on CT scan of the abdomen and pelvis. The patient went for laparoscopic robotic cholecystectomy with Dr. Alejandro Hooks on the the following morning the patient has a jump in her AST to 393 and ALT to 540 her bilirubin did downtrend a little bit to 2.3 and that is the patient is not cleared to be discharged since there was a significant elevation in the patient's liver function tests- following morning the patient is bilirubin improved to 1.7 and AST was 199 and ALT was 543. The patient was requesting pain medication for discharge and the patient was discharged with Union 01/3251 tablet every 6 hours for severe pain and the patient received a total of 15 tablets were prescribed. The patient is to follow up with Dr. Hooks in two weeks. Gen. No acute distress alert and oriented 4 Lungs clear to ascultation bilaterally, no wheezes rales or rhonchi appreciated Heart normal sinus rhythm no murmurs rubs or clicks noted Abdomen soft mild generalized tenderness bowel sounds are normoactive Lower extremities no clubbing cyanosis, nor edema appreciated bilaterally The patient felt ready to be discharged and was medically cleared to be discharged on 10/22/2024 The patient was seen and evaluated on day of discharge. Time spent on discharge 35 minutes *Problems/Diagnosis: (1) Cholelithiasis without obstruction Status: Acute Total Time Spent on D/C: > 30 Minutes Date of Service: Oct 22, 2024 Billing Provider: LADY ARIAS DO Common Visit Codes: [id number] DISCH DAY <30MIN LADY ARIAS DO Oct 22, 2024 22:24
== END 2024-10-22 12:10 | disposition home or self-care (01) | DRG 419 ==
LOC: ER 00:16 → EEVIPCON 00:16 → ED HOLD 03:48 → EEVIPCON 03:48 → SUR 3N 04:40
PROVIDERS: ADMIT Internal Medicine Critical Care Medicine; ATTEND Internal Medicine
PROC: BW211ZZ Computerized Tomography (CT Scan) of Abdomen and Pelvis using Low Osmolar Contrast (ICD-10-PCS; 2024-10-19)
PROC: CF141ZZ Planar Nuclear Medicine Imaging of Gallbladder using Technetium 99m (Tc-99m) (ICD-10-PCS; 2024-10-19)
PROC: 8E0W4CZ Robotic Assisted Procedure of Trunk Region, Percutaneous Endoscopic Approach (ICD-10-PCS; 2024-10-20)
PROC: 0FT44ZZ Resection of Gallbladder, Percutaneous Endoscopic Approach (ICD-10-PCS; principal; 2024-10-20 11:44)
DX: K80.01 Calculus of gallbladder with acute cholecystitis with obstruction (principal); R74.01 Elevation of levels of liver transaminase levels; K76.0 Fatty (change of) liver, not elsewhere classified; F17.210 Nicotine dependence, cigarettes, uncomplicated; Z88.0 Allergy status to penicillin
CPT/HCPCS: 36415; 74177; 74181; 76700; 78226; 80053; 81003; 81025; 82948; 83605; 83690; 83735; 84100; 84132; 84145; 85025; 85610; 85651; 87081; 93005; 96361; 96374; 96375; 99285; A4215; A4618; A6258; A6402; A7000; A9537; G0378; J0131; J1100; J1171; J1200; J1885; J1956; J2003; J2250; J2270; J2405; J2470; J2704; J2710; J3010; J3490; J7030; J7120; Q9967